=== PATIENT | female | born 1980 | race Two or more races ===

== ENCOUNTER 2024-09-04 22:47 | Emergency (ER) | payer OTHER, SELFPAY ==
[2024-09-04 22:47] VITALS: BMI 29.2
[2024-09-05 00:09] VITALS: BP 113/66; PULSE 69; RESP 16; TEMP 36.8; O2SAT 99
--- NOTE | 2024-09-05 00:16 | XR_ITS ---
Examination: Pelvic ultrasound, transabdominal, complete Abdomen sonogram limited Technique: Transabdominal ultrasound of the pelvis performed using grayscale imaging, Limited sonographic images right lower abdomen Date and time of exam: September 05, 2024 at 0228 hrs. Indications: Onset right lower abdominal pain beginning one month ago Findings: Uterus 9.6 x 5.6 x 5.7 cm Endometrial stripe 16mm No uterine mass or intrauterine gestation Right and left ovaries obscured by bowel gas Sonographic images right lower abdomen do not demonstrate the appendix Impression: Limited study No uterine mass or intrauterine gestation No sonographic visualization appendix
--- NOTE | 2024-09-05 00:16 | XR_ITS ---
Examination: Duplex scan of the lower extremity, unilateral right complete Date and time of exam: September 05, 2024 0238 hrs. Indications: Right lower abdominal pain extending into the right leg beginning one week ago Technique: Duplex scan of the extremity veins using B-mode/grayscale imaging and Doppler spectral analysis and color flow Attention is directed to internal echogenicity, compression and augmentation involving these veins, color flow assessment, spectral analysis Findings: Major deep venous structures in the extremity demonstrate normal course and caliber. There is no evidence of deep vein thrombosis. Normal color flow and spectral analysis Impression: Negative for DVT..
--- NOTE | 2024-09-05 00:17 | PD.EDRME ---
Rapid Medical Screening Exam RME Arrival date/time: 09/04/24 22:47 43F with history of tubal ligation presents to ED with 1 month of RLQ/pelvic pain that got worse about 1 week ago and radiates to back, as well as down RLE. Patient denies N/V, diarrhea, dysuria, vaginal bleeding, and fall/trauma. Chief Complaint: Abdominal Pain Vital signs: Vital Signs Temperature 98.2 F 09/05/24 00:09 Pulse Rate 69 09/05/24 00:09 Respiratory Rate 16 09/05/24 00:09 Blood Pressure 113/66 09/05/24 00:09 Pulse Oximetry (%) 99 09/05/24 00:09 Oxygen Delivery Method Room Air 09/05/24 00:09
[2024-09-05 00:42] LABS: Collection Type, Urine Clean Catch
[2024-09-05 00:44] LABS: Basophils # (Auto) 0.1 Thou/mm3 (0.0-0.2); Basophils % (Auto) 1 % (0-2.5); Eosinophils # (Auto) 0.4 Thou/mm3 (0.0-0.5); Eosinophils % (Auto) 4 % (0-10); Hematocrit 35.6 % (36.0-46.0); Immature Granulocytes % (Auto) 0 % (0-0); Immature Granulocytes Auto 0.02 Thou/mm3 (0.00-0.00); Lymphocytes # (Auto) 2.9 Thou/mm3 (1.0-4.8); Lymphocytes % (Auto) 30 % (10-50); Mean Corpuscular HGB Conc 33.7 g/dl (31.0-37.0); Mean Corpuscular Volume 86 fL (80-100); Monocytes # (Auto) 0.8 Thou/mm3 (0.0-0.8); Monocytes % (Auto) 8 % (0-12); Neutrophils # (Auto) 5.7 Thou/mm3 (1.8-7.7); Neutrophils % (Auto) 58 % (37-80); Nucleated Red Blood Cell % 0 /100 WBC (0); Platelet Count 344 Thou/mm3 (140-440); RDW Standard Deviation 39.1 fL (36.4-46.3); Red Blood Count 4.14 Miln/mm3 (4.00-5.20); White Blood Count 9.8 Thou/mm3 (3.6-11.0)
[2024-09-05 00:57] LABS: Bilirubin,Urine Negative (Negative); Blood,Urine Negative (Negative); Clarity,Urine Clear (Clear/Hazy); Color,Urine Lt-Yellow (Lt Yel-Yel); Glucose, Urine Negative (Negative); Ketones,Urine Negative (Negative); Leukocyte Esterase,Urine Negative (Negative); Nitrite,Urine Negative (Negative); PH,Urine 6.5 (5.0-7.0); Protein,Urine Negative (Neg - Trace); RBC,Urine 4 /hpf (0-3); Specific Gravity,Urine 1.027 (1.001-1.035); Squamous Epithelial Cell,Urine 6 /hpf (0-5); Urobilinogen,Urine Negative mg/dL (0.0-1.0); WBC,Urine 2 /hpf (0-5)
[2024-09-05 00:59] LABS: HCG Qualitative,Urine Negative
[2024-09-05 01:08] LABS: Amphetamine/Methamp Scrn,U Negative (Negative); Barbiturate Screen,Urine Negative (Negative); Benzodiazepines Screen,Urine Negative (Negative); Benzoylecgonine Screen, Ur Negative (Negative); Fentanyl Screen,Urine Positive (Negative); Opiate Screen,Urine Negative (Negative); THC Screen,Urine Negative (Negative)
[2024-09-05 01:09] LABS: Sodium 140 mMol/L (136-145)
[2024-09-05 01:10] LABS: Alanine Aminotransferase 10 U/L (10-49); Albumin, Serum 4.9 gm/dL (3.5-5.0); Alkaline Phosphatase 113 U/L (46-116); Anion Gap 8 (7-16); Aspartate Amino Transferase 13 U/L (0-34); BUN/Creatinine Ratio 19 Ratio (12-20); Bilirubin,Total 0.3 mg/dL (0.3-1.2); Blood Urea Nitrogen 17 mg/dL (9-23); Calcium 9.3 mg/dL (8.3-10.6); Calcium (Corrected) 9.3 mg/dL (8.5-10.1); Carbon Dioxide 29.1 mMol/L (20.0-31.0); Chloride 103 mMol/L (98-107); Creatinine (Component) 0.9 mg/dL (0.6-1.3); Estimated Creatinine Clearance 73.6 mL/min (>60); Globulin 2.4 gm/dL (2.3-3.5); Glucose 89 mg/dL (74-106); Lipase 37 U/L (12-53); Osmolality,Calculated 279 (275-295); Potassium 3.3 mMol/L (3.4-5.1); Total Protein 7.3 gm/dL (5.7-8.2); eGFR > 60 See Note
--- NOTE | 2024-09-05 03:47 | PRELIM_ITS ---
Right lower extremity venous Doppler ultrasound. September 05, 2024 0238 hours Clinical history: r/o D VT Comparison: NoneFindings:Renteria scale, color flow and spectral Doppler evaluation of the right lowe r extremity deep veins were performed.The common femoral, superficial femoral and popliteal veins are patent and compressible. Normal respiratory variation is noted. There is no evidence of occlusive or nonocclusive thrombus. The great saphenous vein is patent and compressible at the level of the saphe nofemoral junction. The posterior tibial and peroneal veins are patent and compressible.Impression:No sonographic evidence of deep venous thrombosis in the right lower extremity. Report Electronically S igned By: Paloma Bae 09/05/2024 3:46:54 AM [EST]
--- NOTE | 2024-09-05 03:55 | PRELIM_ITS ---
Pelvic ultrasound (transabdominal). September 05, 2024 0228 hours Clinical history: RLQ/pelvic pain Co mparison: NoneFindings:The evaluation is limited due to excessive overlying bowel gas The uterus is r etroflexed and heterogeneous measuring 9.1 x 5.6 x 5.7 cm. The endometrium is unremarkable and measur es 1.6 cm.Both ovaries are obscured by bowel gas and not evaluated on this examination. There is no a dnexal mass.There is no free fluid on the submitted images.The right lower quadrant is obscured by ov erlying bowel gas. The normal appendix is not definitively visualized.Impression:Heterogeneous uterus . Nonvisualized ovaries. The appendix is not visualized. No sonographic evidence for acute appendicit is is demonstrated. If there continues to be significant clinical concern for appendicitis, further i maging evaluation may be considered. Recommend clinical correlation and followup. Report Electronica lly Signed By: Paloma Bae 09/05/2024 3:55:23 AM [EST]
[2024-09-05 06:13] VITALS: BP 115/70; PULSE 47; RESP 15; TEMP 36.9; O2SAT 100
--- NOTE | 2024-09-05 06:35 | XR_ITS ---
Examination: CT abdomen with intravenous contrast CT pelvis with intravenous contrast 2-D coronal reconstructions 2-D sagittal reconstructions Date and time of exam:September 05, 2024 0718 hrs. Indications: Onset right-sided abdominal pain beginning last night. CTDI: vol (mGy) 8.16 DLP: (mGycm) 413 Technique: Multiple axial sections of the abdomen and pelvis have been obtained. 64 slice high-resolution scanner used. 3 mm axial sections have been obtained, post intravenous injection 60 cc [id number] 2-D sagittal, coronal reconstructions obtained. Low dose protocols were performed. One or more of the following dose reduction techniques were used; automated exposure control, adjustment of the mA and/or KV according to patient size, use of iterative reconstruction technique. Findings: No focal liver or splenic lesion No gallstones No pancreatic or adrenal mass No renal or ureteral calculi,. There is mild dilatation of the right renal calyces and proximal right ureter 12 mm fat-containing umbilical hernia Normal appendix No bowel obstruction No diverticulitis Intact urinary bladder Retroverted uterus No pelvic mass Moderate degenerative disc disease L2-L3, L5-S1 Impression: Negative for gallstones No renal or ureteral calculi Minimal dilatation right renal calyces and proximal right ureter, consider right urinary tract infection Normal appendix No bowel obstruction diverticulitis or free air
[2024-09-05 07:33] VITALS: BP 110/56; PULSE 52; RESP 16; O2SAT 100
--- NOTE | 2024-09-05 07:33 | PC.NURSE ---
PT BACK FROM CT NOW. PT HERE WITH C/O ABD PAIN CONSTANT FOR 1 MONTH
[2024-09-05 08:52] VITALS: BP 108/57; PULSE 59; RESP 18; TEMP 36.6; O2SAT 100
--- NOTE | 2024-09-05 10:30 | EDNOTE_ITS ---
ED General RME/HPI General Chief complaint: Abdominal Pain Stated complaint: RIGHT LOWER ABD PAIN Time Seen by Provider: 09/05/24 06:35 Arrival date/time: 09/04/24 22:47 RME / HPI RME / HPI narrative: 09/04/24 22:47 RME: 43F with history of tubal ligation presents to ED with 1 month of RLQ/pelvic pain that got worse about 1 week ago and radiates to back, as well as down RLE. Patient denies N/V, diarrhea, dysuria, vaginal bleeding, and fall/trauma. JACQUELINE HPI: 43-year-old female past medical history of tubal ligation who presents to the ED with approximately 2 weeks of 1 month of right lower quadrant pain where for the last 2 days it is now radiating up her right flank and down her right leg. She denies dysuria or polyuria. She denies vaginal discharge, she denies diarrhea or constipation. She denies nausea vomiting. She denies sick contact. She had made an appointment with her primary care doctor however is not till 14 September and was concerned therefore comes to the ED today. Related Data Previous Rx's ?Medication ?Instructions ?Recorded meclizine 12.5 mg tablet 12.5 mg PO TID PRN vertigo #30 tabs 01/21/20 ondansetron HCl 4 mg tablet 4 mg PO QID PRN nausea and 01/21/20 (Zofran) vomiting #14 tabs Allergies Allergy/AdvReac Type Severity Reaction Status Date / Time Sulfa (Sulfonamide Allergy Verified 12/07/20 20:03 Antibiotics) Review of Systems Review of Systems Systems Reviewed: All systems reviewed, normal except as documented ED Exam Narrative Physical exam: GENERAL APPEARANCE: AxOx4, generally well-appearing, no acute distress. HEENT: NC, AT. MMM. EOMI, clear conjunctiva, oropharynx clear. NECK: Supple without lymphadenopathy. No stiffness or restricted ROM. HEART: Normal rate and regular rhythm, normal S1/S1, no m/r/g LUNGS: CTAB, moving air well. No crackles or wheezes are heard. ABDOMEN: Soft, mild right mid and right lower quadrant tenderness, nondistended with good bowel sounds heard. BACK: No midline C/T/L spine pain or deformity, No CVAT, no obvious deformity. EXTREMITIES: Without cyanosis, clubbing or edema. MUSCULOSKELETAL: FROM of all major joints, no chest tenderness NEUROLOGICAL: Grossly nonfocal. Alert and oriented, moving all 4 extremities. CN not formally tested but appear grossly intact. Observed to ambulate with normal gait. Skin: Warm and dry without any rash. Course Quality Measures none Orders Category Date Time Status CT Screening NOW Care 09/05/24 06:35 Completed Insert IV NOW Care 09/05/24 06:[address] abdomen pelvis w con Stat Exams 09/05/24 06:35 Completed US pelvic complete Stat Exams 09/05/24 00:16 Completed US venous doppler LE RT Stat Exams 09/05/24 00:16 Completed CBC Stat Lab 09/05/24 00:34 Completed CMP [Comprehensive Metabolic Panel] Stat Lab 09/05/24 00:36 Completed Drug Screen,Urine Stat Lab 09/05/24 00:34 Completed HCG Qualitative,Urine Stat Lab 09/05/24 00:36 Completed Lipase Stat Lab 09/05/24 00:36 Completed Urinalysis Stat Lab 09/05/24 00:36 Completed Ketorolac Inj [Toradol Inj] Med 09/05/24 08:20 Discontinued 30 mg IM X1 ONE Vital Signs Vital signs: Vital Signs Temperature 98.2 F 09/05/24 00:09 Pulse Rate 69 09/05/24 00:09 Respiratory Rate 16 09/05/24 00:09 Blood Pressure 113/66 09/05/24 00:09 Pulse Oximetry (%) 99 09/05/24 00:09 Oxygen Delivery Method Room Air 09/05/24 00:09 SpO2 99% on room air, patient is not hypoxic [facility] Patient data External records reviewed:: [facility] previous records Clinical information provided by:: patient Social determinants that could affect healthcare access:: none Patient has the following chronic illnesses:: None How is presenting disease/condition affected by chronic disease/condition?: no chronic disease Evaluation data The following diagnostics were reviewed and interpreted by me:: lab results and radiology exam(s) Lab and/or radiology exams considered but not ordered:: None Interpretation Summary: As per narrative Medications Medications considered but not ordered:: None Medication administrations:: Medication Administration History Discontinued Medications Ketorolac Tromethamine (Ketorolac Inj 60 Mg/2 Ml Vial) 30 mg IM X1 ONE Stop: 09/05/24 08:21 Above Consultations Consultation(s) initiated? (list below): No Diagnosis Differential Diagnosis ED Complaint MDM: Constipation, appendicitis, chronic pelvic pain, endometriosis, colitis Most likely diagnosis given after review of the tests above:: See below Admission Indicated Admission indicated?: not indicated Explain why admission is indicated or not indicated:: As per narrative Admission Request Was there a request for admission?: No Disposition Plan Disposition Plan: Discharge Discharge Attestation Discharge Attestation: The patient and all family members were given an opportunity to ask questions and understood the discharge instructions. Discharge instructions specifically effects, indications for sooner follow up or return to the emergency department, and the expected course of current diagnosis. Patient condition: Stable Medical Decision Making MDM Narrative MDM Narrative: Ms. Rice is clinically well-appearing, pleasant female who presents to the emergency department with more acute to chronic right sided abdominal pain. It involves the right anterior and right flank regions. She has some radiation down right leg as well. She does not have gait deficits with this. Patient otherwise has stable vital signs. Laboratory testing sent via the RME process shows no acute findings. On exam she did have moderate right lower quadrant tenderness although low suspicion, CT scan of the abdomen was done to rule out appendicitis. There were no acute intra-abdominal findings on CT. There was inquiry of dilation of the ureter which I do note on my review of the CT as well. Urinalysis does not show signs of infection, but does have some trace blood. Microscopic hematuria however quite common in women and may not have anything to do with her current issue. I do not feel this picture is fitting with renal colic as she is sitting comfortably, she does not have the constipation and turning that we do typically see with ureteral pain. The closest thing to having ureteral pain it with is it appears to be radiating down the right leg. Regardless she is clinically well-appearing, vital signs are stable, she has a benign exam, and symptoms are chronic in nature, she has an appoint with her primary care doctor soon and at this point typically can follow-up and other nonemergent causes of her right-sided pain. Differential Diagnosis Differential Diagnosis: Constipation, appendicitis, chronic pelvic pain, endometriosis, colitis Lab Data 09/05/24 00:34 09/05/24 00:36 Labs: Lab Results 09/05/24 09/05/24 Range/Units 00:34 00:36 WBC 9.8 (3.6-11.0) Thou/mm3 RBC 4.14 (4.00-5.20) Miln/mm3 Hgb 12.0 (12.0-16.0) g/dL Hct 35.6 L (36.0-46.0) % MCV 86 (80-100) fL MCH 29.0 (25.0-35.0) pg MCHC 33.7 (31.0-37.0) g/dl RDW Std Deviation 39.1 (36.4-46.3) fL Plt Count 344 (140-440) Thou/mm3 Neut % (Auto) 58 (37-80) % Lymph % (Auto) 30 (10-50) % [place] % (Auto) 8 (0-12) % Eos % (Auto) 4 (0-10) % Baso % (Auto) 1 (0-2.5) % Neut # (Auto) 5.7 (1.8-7.7) Thou/mm3 Lymph # (Auto) 2.9 (1.0-4.8) Thou/mm3 [place] # (Auto) 0.8 (0.0-0.8) Thou/mm3 Eos # (Auto) 0.4 (0.0-0.5) Thou/mm3 Baso # (Auto) 0.1 (0.0-0.2) Thou/mm3 Immature Gran # (Auto) 0.02 H (0.00-0.00) Thou/mm3 Absolute Nucleated RBC 0.00 (0.00-0.00) Thou/mm3 Immature Gran % 0 (0-0) % Nucleated RBC % 0 (0) /100 WBC Sodium 140 (136-145) mMol/L Potassium 3.3 L (3.4-5.1) mMol/L Chloride 103 (98-107) mMol/L Carbon Dioxide 29.1 (20.0-31.0) mMol/L Anion Gap 8 (7-16) BUN 17 (9-23) mg/dL Creatinine 0.9 (0.6-1.3) mg/dL Estim Creat Clear Calc 73.6 (>60) mL/min eGFR > 60 (60 - ) See Note BUN/Creatinine Ratio 19 (12-20) Ratio Glucose 89 (74-106) mg/dL Calculated Osmolality 279 (275-295) Calcium 9.3 (8.3-10.6) mg/dL Corrected Calcium 9.3 (8.5-10.1) mg/dL Total Bilirubin 0.3 (0.3-1.2) mg/dL AST 13 (0-34) U/L ALT 10 (10-49) U/L Alkaline Phosphatase 113 (46-116) U/L Total Protein 7.3 (5.7-8.2) gm/dL Albumin 4.9 (3.5-5.0) gm/dL Globulin 2.4 (2.3-3.5) gm/dL Albumin/Globulin Ratio 2.0 (1.2-2.2) Lipase 37 (12-53) U/L Ur Collection Type Clean Catch Urine Color Lt-Yellow (Lt Yel-Yel) Urine Clarity Clear (Clear/Hazy) Urine pH 6.5 (5.0-7.0) Ur Specific [place] 1.027 (1.001-1.035) Urine Protein Negative (Neg - Trace) Urine Glucose (UA) Negative (Negative) Urine Ketones Negative (Negative) Urine Blood Negative (Negative) Urine Nitrite Negative (Negative) Urine Bilirubin Negative (Negative) Urine Urobilinogen (Auto) Negative (0.0-1.0) mg/dL Ur Leukocyte Esterase Negative (Negative) Urine RBC 4 H (0-3) /hpf Urine WBC 2 (0-5) /hpf Ur Squamous Epith Cells 6 H (0-5) /hpf Urine Bacteria None (None) Urine HCG, Qual Negative Urine Opiates Screen Negative (Negative) Urine Fentanyl Screen Positive A (Negative) Ur Barbiturates Screen Negative (Negative) U Amphetamin/Meth Scrn Negative (Negative) U Benzodiazepines Scrn Negative (Negative) U Cocaine Metab Screen Negative (Negative) U Marijuana (THC) Screen Negative (Negative) Discharge Plan Plan Patient Disposition: HOME (Self Care) Prescriptions/Referrals Prescriptions/Med Rec: No Action meclizine 12.5 mg tablet 12.5 mg PO TID PRN (Reason: vertigo) Qty: 30 0RF ondansetron HCl [Zofran] 4 mg tablet 4 mg PO QID PRN (Reason: nausea and vomiting) Qty: 14 0RF Referrals: Slim (PCP)Rnoey MD [Primary Care Provider] - In 1 week Problem List Clinical Impression: Abdominal pain, chronic, right lower quadrant Patient/Caregiver Discharge Instructions Education Materials: ED Abdominal Pain Unkn Cause Fem Additional Instructions: You can take [id number] ibuprofen as needed for pain in the interim until you follow-up with your primary care doctor. Feel free to return to the emergency department sooner symptoms worsen or if you notice any new, concerning issues. Print Language: Turkish Stand Alone Forms: Chel Award Info., Patient Portal Info Letter
== END 2024-09-05 10:25 | disposition home or self-care (01) ==
PROVIDERS: Physician Assistant; Emergency Provider Emergency Medicine; PCP Family Medicine
DX: R10.31 Right lower quadrant pain (principal); M79.604 Pain in right leg; G89.29 Other chronic pain; Z98.51 Tubal ligation status
CPT/HCPCS: 36415; 74177; 76856; 80053; 80307; 81001; 81025; 83690; 85025; 93971; 99285; A4649; Q9967